=== PATIENT | male | born 1995 | race Asian ===

== ENCOUNTER 2018-03-17 11:28 | Emergency (ER) | payer BC, OTHER ==
--- NOTE | 2018-03-17 12:38 | EDPHY ---
H & P Stated Complaint: LUQ this morning;no inj,no n/v - Personal History Current Tetanus Diphtheria and Acellular Pertussis (TDAP): Yes - Medical/Surgical History Other PMH: neg - Social History Smoking Status: Current every day smoker Time Seen by Provider: 03/17/18 12:27 HPI/ROS: CHIEF COMPLAINT: Right upper quadrant abdominal pain since this morning HISTORY OF PRESENT ILLNESS: 23-year-old male generally healthy, awoke with right upper quadrant abdominal pain this morning. Pain is exacerbated with inspiration, movement. No nausea or vomiting. Bowel movements normal. No back or flank pain. No fever or chills. No trauma. No testicular pain. No radiation of pain. No urinary abnormality. No respiratory complaints. No URI symptoms. No cough. REVIEW OF SYSTEMS: A ten point review of systems was performed and is negative with the exception of the items mentioned in the HPI PAST MEDICAL & SURGICAL HISTORY: No pertinent medical or surgical history SOCIAL HISTORY:Nonsmoker. Student. PHYSICAL EXAM (Prior to examination, patient consented to physical exam, hands were washed and my usual and customary physical exam procedures followed) 1) GENERAL: Well-developed, well-nourished, alert and oriented. Appears uncomfortable. 2) HEAD: Normocephalic, atraumatic 3) HEENT: Pupils equal, round, reactive to light bilaterally. Sclera anicteric. Nasopharynx, oropharynx, clear, no lesions. Ears bilaterally with normal tympanic membranes. 4) NECK: Full range of motion, no meningeal signs. 5) LUNGS: Clear auscultation bilaterally, no wheezes, no rhonchi, no retractions. 6) HEART: Regular rate and rhythm, no murmur, no heave, no gallop. 7) ABDOMEN: Guarding right upper quadrant, tender to palpation right upper quadrant, negative McBurney's, negative Rovsing's, negative peritoneal sign, 8) MUSCULOSKELETAL: Moving all extremities, no focal areas of tenderness, no obvious trauma. No peripheral edema or discoloration. 9) BACK: No CVA tenderness, no midline vertebral tenderness, no fluctuance, no step-off, no obvious trauma, no visual or palpable abnormality. 10) SKIN: No rash, no petechiae. 11) normal male external genitalia bilateral testicles descended, nontender, bilateral cremasteric reflex present and brisk. Bilateral inguinal examination unremarkable with no palpable mass or jossy hernia.. DIFFERENTIAL DIAGNOSIS: My differential diagnosis includes, but is not limited to, acute appendicitis, acute cholecystitis, bowel obstruction, right lower lobe pneumonia, acute pancreatitis, testicular torsion, gastritis and urinary tract infection. The patient understands that this diagnosis is provisional and can never be 100% accurate. This is a partial list of diagnoses considered. These considerations are based on history, physical exam, past history and reassessment. (Irene Allen) Constitutional: Initial Vital Signs Temperature (C) 36.5 C 03/17/18 11:39 Heart Rate 52 L 03/17/18 11:39 Respiratory Rate 16 03/17/18 11:39 Blood Pressure 121/59 H 03/17/18 11:39 O2 Sat (%) 98 03/17/18 11:39 O2 Delivery Mode Room Air Allergies/Adverse Reactions: No Known Allergies Allergy (Unverified 03/17/18 11:42) Home Medications: Medication Instructions Recorded Pantoprazole Sodium [Protonix 40mg 40 mg PO DAILY #30 tab 03/17/18 (RX)] Medical Decision Making - Diagnostics Imaging Results: Imaging Impressions Abdomen Ultrasound 03/17/18 12:35 Impression: 1. No sonographic evidence of cholecystitis. 2. Polyps within the gallbladder measure up to 0.4 cm. Given size, no further follow-up required. Findings and recommendations discussed with Irene Allen at 1345 hour, . Chest X-Ray 03/17/18 12:35 Impression: Clear lungs. No acute process. Images reviewed myself (Irene Allen) ED Course/Re-evaluation: 12:40 p.m.: Will obtain laboratory studies including ultrasound administer GI cocktail. I think that pathology such as pulmonary embolus is less than likely in this patient given his lack of risk factors, negative perc score, low pretest suspicion for embolus. Will hold on D-dimer. Doubt acute appendicitis given his lack of pain in the right lower quadrant and lack of peritoneal sign. Doubt testicular torsion with normal testicular exam and lack of subjective complaints. 1:50 p.m.: Re-evaluation discussed his ultrasound results. He does informed at this time that he has been drinking heavy amounts of alcohol. Doubt acute pancreatitis or acute hepatitis. We discussed possible gastritis related to alcohol use. Recommend alcohol moderation. My usual and customary dietary precautions instructions provided. Initiating PPI therapy, follow up with student health as he may necessitate further evaluation GI on a nonemergent basis. Doubt acute surgical abdominal pathology. Doubt acute appendicitis. All questions and concerns addressed by myself. He feels comfortable being discharged. (Irene Allen) Other Provider: PHYSICIAN DOCUMENTATION: The patient was evaluated and managed by the Physician Automobile Mechanic Apprentice and myself. I have reviewed the chart and agree with the findings and plan of care as documented. In addition, I examined the patient myself at 1335. History confirmed as nontraumatic right lower chest and upper abdominal pain. No family history of venous thromboembolism or recent travel or immobilization. A little bit worse with movement and breathing. Physical findings as follows: No Edwards sign, a little bit of lower chest wall tenderness on the right side and in the epigastric area. Speaks in full sentences. Low risk for pulmonary embolism. Legs not swollen, no hemoptysis, perc negative. I am the secondary supervising physician. (Alfredo Brooks) - Data Points Laboratory Results: Laboratory Results 03/17/18 12:56 03/17/18 12:56 03/17/18 03/17/18 12:56 12:56 WBC 5.00 10^3/uL 10^3/uL (3.80-9.50) RBC 5.16 10^6/uL 10^6/uL (4.40-6.38) Hgb 16.1 g/dL g/dL (13.7-17.5) Hct 46.3 % % (40.0-51.0) MCV 89.7 fL fL (81.5-99.8) MCH 31.2 pg pg (27.9-34.1) MCHC 34.8 g/dL g/dL (32.4-36.7) RDW 12.3 % % (11.5-15.2) Plt Count 176 10^3/uL 10^3/uL (150-400) MPV 9.7 fL fL (8.7-11.7) Neut % (Auto) 62.0 % % (39.3-74.2) Lymph % (Auto) 22.8 % % (15.0-45.0) [place] % (Auto) 8.6 % % (4.5-13.0) Eos % (Auto) 5.8 % % (0.6-7.6) Baso % (Auto) 0.6 % % (0.3-1.7) Nucleat RBC Rel Count 0.0 % % (0.0-0.2) Absolute Neuts (auto) 3.10 10^3/uL 10^3/uL (1.70-6.50) Absolute Lymphs (auto) 1.14 10^3/uL 10^3/uL (1.00-3.00) Absolute Monos (auto) 0.43 10^3/uL 10^3/uL (0.30-0.80) Absolute Eos (auto) 0.29 10^3/uL 10^3/uL (0.03-0.40) Absolute Basos (auto) 0.03 10^3/uL 10^3/uL (0.02-0.10) Absolute Nucleated RBC 0.00 10^3/uL 10^3/uL (0-0.01) Immature Gran % 0.2 % % (0.0-1.1) Immature Gran # 0.01 10^3/uL 10^3/uL (0.00-0.10) Sodium 141 mEq/L mEq/L (135-145) Potassium 4.5 mEq/L mEq/L (3.3-5.0) Chloride 105 mEq/L mEq/L (97-110) Carbon Dioxide 25 mEq/l mEq/l (22-31) Anion Gap 11 mEq/L mEq/L (8-16) BUN 13 mg/dL mg/dL (7-23) Creatinine 0.7 mg/dL mg/dL (0.7-1.3) Estimated GFR > 60 Glucose 97 mg/dL mg/dL (70-100) Calcium 9.8 mg/dL mg/dL (8.5-10.4) Total Bilirubin 1.0 mg/dL mg/dL (0.1-1.4) Conjugated Bilirubin 0.4 mg/dL mg/dL (0.0-0.5) Unconjugated Bilirubin 0.6 mg/dL mg/dL (0.0-1.1) AST 26 IU/L IU/L (17-59) ALT 21 IU/L IU/L (21-72) Alkaline Phosphatase 69 IU/L IU/L (38-126) Total Protein 8.0 g/dL g/dL (6.3-8.2) Albumin 4.7 g/dL g/dL (3.5-5.0) Lipase 74 IU/L IU/L (23-300) Medications Given: Discontinued Medications Al Hydroxide/Mg Hydroxide (Maalox Susp) 30 ml PO ONCE ONE Stop: 03/17/18 13:24 Last Admin: 03/17/18 14:05 Dose: Not Given Hyoscyamine Sulfate (Levsin, Hyomax-Sl) 0.25 mg PO ONCE ONE Stop: 03/17/18 13:24 Last Admin: 03/17/18 14:05 Dose: Not Given Lidocaine (Lidocaine 2% Viscous) 15 ml PO ONCE ONE Stop: 03/17/18 13:24 Last Admin: 03/17/18 14:05 Dose: Not Given Departure - Departure Disposition: Home, Routine, Self-Care Clinical Impression: Abdominal pain Qualifiers: Abdominal location: right upper quadrant Qualified Code(s): R10.11 - Right upper quadrant pain Condition: Good Instructions: Acute Abdominal Pain (ED) Additional Instructions: Seek immediate medical attention if you develop new or worsening symptoms, if you develop fevers, chills, inability to tolerate oral intake or any other symptoms that concerns you. Referrals: [facility] L[facility],. [Clinic] - 1-2 days without fail Prescriptions: Pantoprazole Sodium [Protonix 40mg (RX)] 40 mg PO DAILY #30 tab
[2018-03-17 13:11] LABS: PLATELET COUNT 176 10^3/uL (150-400)
[2018-03-17] MEDS ORDERED: LIDOCAINE 2% VISCOUS 15 ML UDCUP PO ONE (13:23)
[2018-03-17] MEDS ORDERED: MAG HYDROX/AL HYDROX/SIMETH 30 ML UDCUP PO ONE (13:23)
[2018-03-17] MEDS ORDERED: HYOSCYAMINE SULFATE 0.125 MG TAB PO ONE (13:23)
[2018-03-17 13:59] VITALS: BP 128/68
== END 2018-03-17 14:09 | disposition home or self-care (01) ==
DX: R10.11 Right upper quadrant pain (principal); F17.200 Nicotine dependence, unspecified, uncomplicated